=== PATIENT | male | born 1990 | race Caucasian/White ===

== ENCOUNTER 2019-10-02 14:06 | Emergency (ER) | payer MEDICAID ==
[~2019-10-02] VITALS: Ht 167.6 cm; Wt 92.1 kg
[2019-10-02 14:09] VITALS: BP 117/77
[2019-10-02] MEDS: DEXAMETHASONE 10 MG/ML VIAL IM ONE (15:58)
[2019-10-02 16:13] VITALS: BP 111/72
== END 2019-10-02 16:13 | disposition home or self-care (01) ==
LOC: MED 14:06
DX: A08.4 Viral intestinal infection, unspecified (principal); J40 Bronchitis, not specified as acute or chronic
CPT/HCPCS: 71045; 96372; 99283; J1100; Q0092

== ENCOUNTER 2020-01-16 05:13 | Emergency (ER) | payer SELFPAY ==
[~2020-01-16] VITALS: Ht 172.7 cm; Wt 100.2 kg
[2020-01-16 05:22] VITALS: BP 124/67
--- NOTE | 2020-01-16 05:26 | NUR ---
PT TAKEN TO BED 11
--- NOTE | 2020-01-16 05:27 | NUR ---
PT 29 Y/O MALE BIB SELF FOR C/O DEAN S/P HITTING HEAD X 2 WEEKS AGO. PT AAO X4. PT STATES PAIN IS 5/10 THROBBING AND RADIATES FROM FRONT OF HEAD TO NECK. PERRLA 4MM BRISK, BILAT. PT ALSO HAS C/O INTERMITTENT NAUSEA AND DIZZYNESS. PT ROM INTACT. PT GAIT STEADY. PT HAS EQUAL STRENGTH OF UE AND LE BILAT. PT DENIES ANY ABNORMAL DRAINAGE FROM NOSE OR EARS. PT VSS. PT NEGATIVE COVID SCREEN. MEDHX: NONE ALLERGIES: NKA Addendum: 01/16/20 at 0534 by [email or web address] * PT DENIES LOC WHEN HITTING HEAD.
--- NOTE | 2020-01-16 05:31 | NUR ---
DR. SCHWARZ AT BEDSIDE.
[2020-01-16] MEDS ORDERED: IBUPROFEN 600 MG TAB PO ONE (05:35)
--- NOTE | 2020-01-16 05:37 | NUR ---
MOTRIN 600MG GIVEN PO FOR 5/10 DEAN. PT ABLE TO SWALLOW MEDICATION WITHOUT DIFFICULTY.
--- NOTE | 2020-01-16 05:44 | NUR ---
PT TAKEN TO CT VIA W/C.
--- NOTE | 2020-01-16 05:57 | NUR ---
PT RETURNED FROM C/T VIA. W/C PT ABLE TO AMBULATE TO BED WITH STEADY GAIT.
--- NOTE | 2020-01-16 06:20 | NUR ---
PT STATED HEAD PAIN REDUCED FROM 5/10 TO 3/10. "I FEEL BETTER."
[2020-01-16 06:35] VITALS: BP 124/67
--- NOTE | 2020-01-16 06:35 | NUR ---
Patient discharged with v/s stable. Written and verbal after care instructions given and explained. Patient verbalized understanding. Ambulatory with steady gait. All questions addressed prior to discharge. Advised to follow up with PMD.
== END 2020-01-16 06:35 | disposition home or self-care (01) ==
LOC: MED 05:13
DX: R51 Headache (principal)
CPT/HCPCS: 70450; 99284

== ENCOUNTER 2020-07-14 02:55 | Emergency (ER) | payer SELFPAY ==
[~2020-07-14] VITALS: Ht 170.2 cm; Wt 95.3 kg
[2020-07-14 02:55] VITALS: BP 159/97
[2020-07-14] MEDS ORDERED: LORazepam 1 MG TAB PO ONE (03:10)
[2020-07-14 03:26] LABS: BASOPHILS # (AUTO) 0.1 K/uL (0.00-0.22); BASOPHILS % (AUTO) 0.6 % (0.0-2.0); EOSINOPHILS # (AUTO) 0.2 K/uL (0-0.4); EOSINOPHILS % (AUTO) 1.9 % (0.0-4.0); HEMATOCRIT 43.2 % (36-52); HEMOGLOBIN 15.1 g/dL (12.0-18.0); LYMPHOCYTES # (AUTO) 2.8 K/uL (2.0-11.5); LYMPHOCYTES % (AUTO) 30.4 % (20.5-51.1); MEAN CORPUSCULAR HEMOGLOBIN 31 pg (27-31); MEAN CORPUSCULAR HGB CONC 35 g/dL (33-37); MEAN CORPUSCULAR VOLUME 88.2 fL (80-94); MONOCYTES # (AUTO) 0.6 K/uL (0.8-1.0); MONOCYTES % (AUTO) 5.9 % (1.7-9.3); NEUTROPHILS # (AUTO) 5.7 K/uL (1.8-7.7); NEUTROPHILS % (AUTO) 61.2 % (42.2-75.2); PLATELET COUNT (AUTO) 307 K/uL (140-450); RED CELL DISTRIBUTION WIDTH 13.4 % (11.6-13.7); WHITE BLOOD COUNT (AUTO) 9.4 K/uL (4.8-10.8)
[2020-07-14 03:36] LABS: ANION GAP 15.4 (8-16); CARBON DIOXIDE 25.4 mmol/L (21-32); CREATININE 1.2 mg/dL (0.6-1.3); POTASSIUM 3.8 mmol/L (3.5-5.1)
[2020-07-14 03:51] LABS: MAGNESIUM 2.1 mg/dL (1.8-2.4); THYROID STIMULATING HORMONE 1.5 uIU/mL (0.34-3.74)
[2020-07-14 04:13] VITALS: BP 159/97
== END 2020-07-14 04:13 | disposition home or self-care (01) ==
LOC: MED 02:55
DX: F41.9 Anxiety disorder, unspecified (principal); R00.2 Palpitations; F17.200 Nicotine dependence, unspecified, uncomplicated; F12.90 Cannabis use, unspecified, uncomplicated; F14.90 Cocaine use, unspecified, uncomplicated; Z71.6 Tobacco abuse counseling
CPT/HCPCS: 36415; 71045; 80048; 83735; 84443; 84484; 85025; 93005; 99285; Q0092

== ENCOUNTER 2021-11-24 17:39 | Inpatient (IN) | payer MEDICAID, SELFPAY ==
[~2021-11-24] VITALS: Ht 170.2 cm; Wt 95.7 kg
[2021-11-24 17:48] VITALS: BP 149/103
--- NOTE | 2021-11-24 17:48 | NUR ---
31 Y/O MALE C/O SORE THROAT X2 WEEKS WITH NAUSEA. 5/10 PAIN. TONSILS +3. MEDHX: DENIES NKA
--- NOTE | 2021-11-24 19:06 | NUR ---
RAPID STREP SWAB COLLECTED AND SENT TO LAB
[2021-11-24 19:13] LABS: APPEARANCE,URINE CLEAR (CLEAR); BILIRUBIN,URINE NEGATIVE (NEGATIVE); BLOOD, URINE TRACE-I (NEGATIVE); LEUKOCYTE ESTERASE ,URINE NEGATIVE (NEGATIVE); NITRITE, URINE NEGATIVE (NEGATIVE); PH,URINE 5.5 (5.0-9.0); UGLUCOSE 3+ (NEGATIVE)
[2021-11-24] MEDS ORDERED: NACL 0.9% 1,000 ML IV ONE (19:15)
[2021-11-24] MEDS ORDERED: SODIUM CHLORIDE FLUSH 10 ML SYR IVF STA (19:15)
[2021-11-24] MEDS ORDERED: ONDANSETRON 4 MG/2 ML VIAL IVP ONE (19:15)
[2021-11-24 19:16] LABS: COLOR,URINE STRAW (YELLOW)
[2021-11-24 19:20] LABS: RBC,URINE 0-5 /HPF (0-5)
[2021-11-24 19:21] LABS: WBC,URINE NONE SEEN /HPF (0-5)
[2021-11-24 19:43] LABS: BASOPHILS # (AUTO) 0.1 K/uL (0.00-0.22); BASOPHILS % (AUTO) 0.4 % (0.0-2.0); EOSINOPHILS # (AUTO) 0.1 K/uL (0-0.4); EOSINOPHILS % (AUTO) 0.4 % (0.0-4.0); HEMATOCRIT 43.5 % (36-52); LYMPHOCYTES # (AUTO) 1.7 K/uL (2.0-11.5); LYMPHOCYTES % (AUTO) 11.4 % (20.5-51.1); MEAN CORPUSCULAR HEMOGLOBIN 31 pg (27-31); MEAN CORPUSCULAR HGB CONC 34 g/dL (33-37); MONOCYTES # (AUTO) 1.2 K/uL (0.8-1.0); MONOCYTES % (AUTO) 8.3 % (1.7-9.3); NEUTROPHILS # (AUTO) 11.7 K/uL (1.8-7.7); NEUTROPHILS % (AUTO) 79.5 % (42.2-75.2); PLATELET COUNT (AUTO) 244 K/uL (140-450); RED BLOOD CELL COUNT(AUTO) 4.89 MIL/uL (4.20-6.10); RED CELL DISTRIBUTION WIDTH 14.3 % (11.6-13.7); WHITE BLOOD COUNT (AUTO) 14.7 K/uL (4.8-10.8)
--- NOTE | 2021-11-24 19:47 | NUR ---
PT AMBULATED TO BED 05.
--- NOTE | 2021-11-24 19:56 | NUR ---
PT LAYING IN BED LOCKED IN LOWEST POSITION W X2 SIDERAILS UP FOR PT SAFETY. PT REPORTS HE HAD BEEN HAVING SEVERE EXHAUSTION EPISODES, CONSTANT URINATION, DRY MOUTH, SORE THROAT W WHITE RESIDUE, LACK OF APPETITE, NAUSEA, AND CONSTIPATION,+ APPROX 39LB WEIGHT LOSS IN 2 WEEKS. PT AOX4, GCS, 15, CONECTED TO MONITOR W VSS. BREATHING EVEN AND UNLABORED. NAD NOTED, WILL CONTINUE TO MONITOR. PMH:DENIES ALLERGIES: DENIES
[2021-11-24 20:02] LABS: ALBUMIN 3.5 g/dL (3.4-5.0); ANION GAP 25.2 (8-16); CARBON DIOXIDE 17.2 mmol/L (21-32); CREATININE 1.1 mg/dL (0.6-1.3); POTASSIUM 3.4 mmol/L (3.5-5.1); TOTAL BILIRUBIN 0.6 mg/dL (0.0-1.0)
[2021-11-24] MEDS ORDERED: NACL 0.9% 2,000 ML IV ONE (20:30)
[2021-11-24] MEDS ORDERED: INSULIN REGULAR, HUMAN 100 UNIT in NACL 0.9% 100 ML IV ONE ×2 (20:30)
[2021-11-24] MEDS ORDERED: POTASSIUM CHLORIDE 10 MEQ TABER PO ONE (20:30)
[2021-11-24] MEDS ORDERED: KETOROLAC 30 MG/ML VIAL IVP ONE (20:30)
--- NOTE | 2021-11-24 21:16 | NUR ---
PT REPORTS ONGOING SORE THROAT PAIN. ERMD MADE AWARE.
[2021-11-24] MEDS ORDERED: INSULIN REGULAR, HUMAN 100 UNIT in NACL 0.9% 100 ML IV SCH ×2 (21:50)
--- NOTE | 2021-11-24 21:52 | NUR ---
PT DENIES ANY ONGOING THROAT PAIN. VSS. WILL CONTINUE TO MONITOR.
--- NOTE | 2021-11-24 22:26 | NUR ---
Pt report given to GRIS WHITFIELD. Transfer of care at this time.
--- NOTE | 2021-11-24 22:30 | NUR ---
REPORT CALLED IN VIA TELEPHONE FROM ER [employer] SORTER GRIS SANTOS. PT A0X4, ABLE TO FOLLOW COMMANDS, AND LET NEEDS KNOWN. PT ON ROOM AIR WITH 02 SATURATION @98%, LUNG SOUNDS CLEAR THROUGHOUT. SR ON MONITOR. 20G TO LT AC, PATENT AND INTACT, INFUSING NS @250 ML/HR. 18G TO RT AC, PATENT AND INTACT, INFUSING INSULIN AT 10 UNITS/HR. PT DENIES HAVING ANY PAIN. SKIN INTACT. SAFETY MEASURES IN PLACE. BED IN LOWEST POSITION WITH CALL LIGHT WITHIN REACH. WILL CONTINUE TO MONITOR.
[2021-11-24] MEDS: NACL 0.9% 1,000 ML IV SCH (22:31)
--- NOTE | 2021-11-24 22:40 | NUR ---
Patient will be admitted to care of . Admited to ICU. Will go to room ICU 7. Belongings list completed. Report to GRIS WHITFIELD.
--- NOTE | 2021-11-24 22:45 | NUR ---
PT ARRIVED VIA GURNEY FROM ED
[2021-11-24 23:00] VITALS: BP 117/63
[2021-11-25] VITALS (15 sets, daily range): BP systolic 81–160; BP diastolic 46–97
[2021-11-25] MEDS ORDERED: LORazepam 2 MG/ML VIAL IM/IVP PRN (00:25)
[2021-11-25] MEDS ORDERED: ZOLPIDEM 5 MG TAB PO PRN (00:25)
[2021-11-25] MEDS ORDERED: MAG SULF 2000 MG/WATER PREMIX 50 ML IV PRN (00:25)
[2021-11-25] MEDS ORDERED: HYDROcodone/APAP 5/325 MG 1 TAB TAB PO PRN (00:25)
[2021-11-25] MEDS ORDERED: DOCUSATE SODIUM 100 MG GELCAP PO PRN (00:25)
[2021-11-25] MEDS: BLOOD GLUCOSE MONITORING 1 DEV DEV FS SCH ×24 (00:25→23:25)
[2021-11-25] MEDS ORDERED: DEXTROSE 50% 50 ML SYR IVP PRN (00:25)
[2021-11-25] MEDS ORDERED: ACETAMINOPHEN 325 MG TAB PO PRN (00:25)
[2021-11-25] MEDS ORDERED: ONDANSETRON 4 MG/2 ML VIAL IM/IVP PRN (00:25)
--- NOTE | 2021-11-25 00:26 | NUR ---
BLOOD GLUCOSE READING OF 171. REGULAR NS HELD AND D5 1/2NS STARTED @150 ML/HR. WILL CONTINUE TO MONITOR.
[2021-11-25 00:33] LABS: ANION GAP 19.9 (8-16); CARBON DIOXIDE 16.4 mmol/L (21-32); CREATININE 0.8 mg/dL (0.6-1.3); POTASSIUM 3.3 mmol/L (3.5-5.1)
[2021-11-25] MEDS ORDERED: MORPHINE SULFATE 4 MG/ML SYR IVP PRN (01:05)
[2021-11-25 01:06] LABS: CHOL/HDL RATIO 7.3 (1-4.5)
[2021-11-25] MEDS: INSULIN REGULAR, HUMAN 100 UNIT in NACL 0.9% 100 ML IV SCH ×4 (01:30→16:17)
[2021-11-25] MEDS: DEXT 5% / NACL 0.45% 1,000 ML IV SCH ×3 (01:30→17:42)
--- NOTE | 2021-11-25 01:49 | NUR ---
DR RUBY CONTACTED ABOUT HCO3 AND ANION GAP VALUES. RECEIVED ORDERS TO CONTINUE WITH DKA PROTOCOL.
[2021-11-25] MEDS: NACL 0.9% 1,000 ML IV SCH ×6 (01:50→21:50)
[2021-11-25 01:51] LABS: PROTHROMBIN TIME 9.4 secs (10.8-13.4)
--- NOTE | 2021-11-25 04:28 | NUR ---
BLOOD GLUCOSE READING OF 234. D5 1/2NS STOPPED AND REGULAR NS STARTED @220 ML/HR PER DKA PROTOCOL. WILL CONTINUE TO MONITOR.
[2021-11-25 04:43] LABS: ALBUMIN 2.7 g/dL (3.4-5.0); ANION GAP 15.5 (8-16); CARBON DIOXIDE 19.6 mmol/L (21-32); CREATININE 0.9 mg/dL (0.6-1.3); POTASSIUM 3.1 mmol/L (3.5-5.1); TOTAL BILIRUBIN 0.5 mg/dL (0.0-1.0)
--- NOTE | 2021-11-25 05:38 | NUR ---
PT BLOOD GLUCOSE READING OF 199. REGULAR NS STOPPED AND D5 1/2NS STARTED @150 ML/HR PER DKA PROTOCOL. WILL CONTINUE TO MONITOR.
--- NOTE | 2021-11-25 07:24 | NUR ---
REPORT GIVEN TO JJ NGUYENO FOR CONTINUITY OF CARE
--- NOTE | 2021-11-25 07:30 | NUR ---
RECEIVED REPORT FROM CORRECTIONAL THERAPY TEACHER. AOX4, ABLE TO MAKE NEEDS KNOWN. ON ROOM AIR WITH 02 SATURATION @97%, LUNG SOUNDS CLEAR THROUGHOUT. SR ON MONITOR. 20G TO LT AC, PATENT AND INTACT, INFUSING D5 1/2NS @150 ML/HR. 18G TO RT AC, PATENT AND INTACT, INFUSING INSULIN AT 0.05U/KG/HR. NO C/O PAIN. SKIN INTACT. SAFETY MEASURES IN PLACE. BED IN LOWEST POSITION WITH CALL LIGHT WITHIN REACH. WILL CONTINUE TO MONITOR.
[2021-11-25 08:51] LABS: ANION GAP 15.1 (8-16); CARBON DIOXIDE 18.9 mmol/L (21-32); CREATININE 0.8 mg/dL (0.6-1.3)
--- NOTE | 2021-11-25 09:05 | NUR ---
DUE MEDS GIVEN. TOLERATED WELL. PT WITH C/O SORE THROAT 02/26, NORCO GIVEN ORDERED
--- NOTE | 2021-11-25 09:23 | NUR ---
PATIENT HAS BEEN SCREENED AND CATEGORIZED HIGH NUTRITION RISK. PATIENT WILL BE SEEN WITHIN 1-2 DAYS OF ADMISSION. REFERRAL RECEIVED FOR NEWLY DIAGNOSED DIABETIC JOMAR BARROSO RD
[2021-11-25] MEDS: POTASSIUM CHLORIDE 10 MEQ TABER PO PRN ×2 (09:36→21:29)
[2021-11-25 10:58] LABS: BASOPHILS # (AUTO) 0.1 K/uL (0.00-0.22); BASOPHILS % (AUTO) 0.6 % (0.0-2.0); EOSINOPHILS # (AUTO) 0.1 K/uL (0-0.4); EOSINOPHILS % (AUTO) 0.9 % (0.0-4.0); HEMATOCRIT 39.1 % (36-52); HEMOGLOBIN 13.4 g/dL (12.0-18.0); LYMPHOCYTES # (AUTO) 2.2 K/uL (2.0-11.5); LYMPHOCYTES % (AUTO) 20.4 % (20.5-51.1); MEAN CORPUSCULAR HEMOGLOBIN 31 pg (27-31); MEAN CORPUSCULAR HGB CONC 34 g/dL (33-37); MEAN CORPUSCULAR VOLUME 90.1 fL (80-94); MONOCYTES # (AUTO) 0.8 K/uL (0.8-1.0); MONOCYTES % (AUTO) 7.3 % (1.7-9.3); NEUTROPHILS # (AUTO) 7.6 K/uL (1.8-7.7); NEUTROPHILS % (AUTO) 70.8 % (42.2-75.2); PLATELET COUNT (AUTO) 190 K/uL (140-450); RED BLOOD CELL COUNT(AUTO) 4.34 MIL/uL (4.20-6.10); RED CELL DISTRIBUTION WIDTH 14.4 % (11.6-13.7); WHITE BLOOD COUNT (AUTO) 10.7 K/uL (4.8-10.8)
--- NOTE | 2021-11-25 11:00 | NUR ---
PT RESTING IN BED. WITH C/O MILD THROAT PAIN, STATED THAT THE NORCO HELPED. NO RESPIRATORY DISTRESS
--- NOTE | 2021-11-25 11:18 | NUR ---
DC PLANN[age] YRS OLD MALE PATIENT WAS ADMITTED FROM HOME WITH A DX OF DKA. PATIENT HAS A HX OF DM. BLOOD GLUCOSE ON ADMISSION 399, ANION GAP 25.2 -19.9-15.5-15.1 CXR SHOWED NO EVIDENCE OF ACUTE CARDIOPULMONARY DISEASE. RAPID COVID TEST NEGATIVE. ADMINISTERED IVF, AND CONTINUED HOME MEDS. CONSULTED WITH PULMO. DC PLAN TO GO HOME WHEN STABLE CM TO FOLLOW
[2021-11-25 12:44] LABS: ANION GAP 14.4 (8-16); CARBON DIOXIDE 20.7 mmol/L (21-32); CREATININE 0.8 mg/dL (0.6-1.3); POTASSIUM 3.1 mmol/L (3.5-5.1)
[2021-11-25] MEDS ORDERED: POTASSIUM CHLORIDE 10 MEQ TABER PO SCH ×2 (13:17→23:00)
[2021-11-25] MEDS ORDERED: PANTOPRAZOLE 40 MG TABEC PO SCH (13:32)
--- NOTE | 2021-11-25 13:45 | NUR ---
NOTIFIED DR DEL VALLE ABOUT PT'S COMPLAINT OF WORSENING THROAT PAIN AND WHITE SPOTS IN PT'S MOUTH. ORDERED NYSTATIN SWISH AND SWALLOW
[2021-11-25 14:38] LABS: BARBITURATE, URINE NEGATIVE ng/ml (NEG <=200); BENZODIAZEPINE, URINE NEGATIVE ng/mL (NEG <=200); CANNABINOID, URINE NEGATIVE ng/mL (NEG <=50); COCAINE, URINE NEGATIVE ng/mL (NEG <=300); OPIATE, URINE POSITIVE ng/mL (NEG <=2000); PHENCYCLIDINE SCREEN,URINE NEGATIVE ng/mL (NEG <=25)
[2021-11-25 16:27] LABS: CARBON DIOXIDE 23.1 mmol/L (21-32); CREATININE 0.8 mg/dL (0.6-1.3); POTASSIUM 3.1 mmol/L (3.5-5.1)
--- NOTE | 2021-11-25 16:30 | NUR ---
NOTIFIED DR DEL VALLE ABOUT LAB RESULTS, K-3.1 AND ANION GAP 14.0, NO NEW ORDERS
[2021-11-25] MEDS: NYSTATIN 500 MU/5 ML UDC PO SCH ×2 (16:42→21:16)
--- NOTE | 2021-11-25 18:00 | NUR ---
PT EATING DINNER, NO COMPLAINTS AT THIS TIME, NO APPARENT DISTRESS
--- NOTE | 2021-11-25 19:29 | NUR ---
RECEIVED REPORT FROM GRIS BRIGGS FOR CONTINUATION OF CARE
--- NOTE | 2021-11-25 19:37 | NUR ---
PATIENT RESTING WITH EYES CLOSED, AND SEMI FOWLERS. PATIENT ON INSULIN DRIP CURRENTLY AT 0.1. SAFETY MEASURES ARE IN PLACE, ATTACHED TO MONITORS AND WILL CONTINUE TO MONITOR PATIENT.
[2021-11-25] MEDS ORDERED: ATORVASTATIN 20 MG TAB PO SCH (21:00)
[2021-11-25 21:05] LABS: ANION GAP 13.4 (8-16); CARBON DIOXIDE 23.6 mmol/L (21-32); CREATININE 0.8 mg/dL (0.6-1.3)
[2021-11-26] VITALS: BP 119/70
[2021-11-26] MEDS: BLOOD GLUCOSE MONITORING 1 DEV DEV FS SCH ×13 (00:25→12:23)
[2021-11-26 01:14] LABS: CREATININE 0.8 mg/dL (0.6-1.3)
[2021-11-26 02:00] VITALS: BP 125/73
[2021-11-26] MEDS: NACL 0.9% 1,000 ML IV SCH ×3 (02:20→09:50)
[2021-11-26 04:00] VITALS: BP 119/57
--- NOTE | 2021-11-26 04:04 | NUR ---
patient repositioned and found patient to be soiled and had diarrhea that is black and tarry. provided pericare and added rk pads- patient tolerated well.
[2021-11-26 04:29] LABS: BASOPHILS # (AUTO) 0.1 K/uL (0.00-0.22); BASOPHILS % (AUTO) 0.5 % (0.0-2.0); EOSINOPHILS # (AUTO) 0.1 K/uL (0-0.4); EOSINOPHILS % (AUTO) 0.5 % (0.0-4.0); HEMATOCRIT 43.6 % (36-52); HEMOGLOBIN 14.9 g/dL (12.0-18.0); LYMPHOCYTES # (AUTO) 1.1 K/uL (2.0-11.5); LYMPHOCYTES % (AUTO) 10.2 % (20.5-51.1); MEAN CORPUSCULAR HEMOGLOBIN 31 pg (27-31); MEAN CORPUSCULAR HGB CONC 34 g/dL (33-37); MEAN CORPUSCULAR VOLUME 89.2 fL (80-94); MONOCYTES # (AUTO) 0.8 K/uL (0.8-1.0); MONOCYTES % (AUTO) 7.4 % (1.7-9.3); NEUTROPHILS # (AUTO) 8.5 K/uL (1.8-7.7); NEUTROPHILS % (AUTO) 81.4 % (42.2-75.2); PLATELET COUNT (AUTO) 176 K/uL (140-450); RED BLOOD CELL COUNT(AUTO) 4.89 MIL/uL (4.20-6.10); RED CELL DISTRIBUTION WIDTH 13.8 % (11.6-13.7); WHITE BLOOD COUNT (AUTO) 10.5 K/uL (4.8-10.8)
[2021-11-26 04:45] LABS: CARBON DIOXIDE 21.4 mmol/L (21-32); CREATININE 0.8 mg/dL (0.6-1.3); POTASSIUM 3.4 mmol/L (3.5-5.1)
[2021-11-26 04:48] LABS: MAGNESIUM 1.4 mg/dL (1.8-2.4); PHOSPHORUS 1.8 mg/dL (2.5-4.9)
[2021-11-26] MEDS: DEXT 5% / NACL 0.45% 1,000 ML IV SCH (04:48)
[2021-11-26 06:00] VITALS: BP 109/62
--- NOTE | 2021-11-26 07:15 | NUR ---
report given to Laverne LANDRY for continuation of care
--- NOTE | 2021-11-26 07:15 | NUR ---
RECEIVED BEDSIDE REPORT FROM ISAIAH AND FIDEL RN FOR CONTINUITY OF CARE. PT AAOX4, EYES OPEN, PERRLA. ON ROOM AIR. ST ON THE MONITOR. BOWEL SOUNDS ACTIVE. CONTINENT OF BOWEL AND BLADDER. URINAL AT BEDSIDE. ACTIVE ROM BUE BLE. L AC 20G IV INFUSING NS AT 150 ML/HR. R AC 18G INFUSING INSULIN REGULAR AT 0.1 UNIT/KG/HR. CALL LIGHT WITHIN REACH. ON STANDARD PRECAUTIONS. SAFETY PRECAUTIONS MET. INITIAL ASSESSMENT COMPLETE, WILL CONTINUE TO CLOSELY MONITOR.
[2021-11-26 08:00] VITALS: BP 137/74
--- NOTE | 2021-11-26 08:00 | NUR ---
PT EATING CLEAR LIQUID BREAKFAST. TOLERATING WELL. WILL CONTINUE TO CLOSELY MONITOR.
[2021-11-26] MEDS: NYSTATIN 500 MU/5 ML UDC PO SCH ×2 (08:05→12:23)
[2021-11-26] MEDS ORDERED: PANTOPRAZOLE 40 MG TABEC PO SCH (09:00)
[2021-11-26 09:07] LABS: T4 (THYROXINE) 7.3 ug/dL (4.5-12.0)
[2021-11-26 09:15] LABS: ANION GAP 13.4 (8-16); POTASSIUM 3.4 mmol/L (3.5-5.1)
--- NOTE | 2021-11-26 10:10 | NUR ---
RECEIVED TEXT FROM DR DEL VALLE REGARDING ANION GAP 13.4. RECEIVED ORDERS TO START LANTUS 10U DAILY, HUMALOG SLIDING SCALE, AND WEAN OFF INSULIN DRIP.
--- NOTE | 2021-11-26 10:15 | NUR ---
PROVIDED PT WITH BEDSIDE COMMODE. XL BM NOTED, CHARLA MARIE. WILL CONTINUE TO MONITOR.
[2021-11-26] MEDS ORDERED: INSULIN LANTUS 100 UNITS/ML 10 ML VIAL SUBQ SCH (10:20)
--- NOTE | 2021-11-26 10:45 | NUR ---
SEEN AND EXAMINED BY DR DEL VALLE.
[2021-11-26] MEDS: INSULIN LISPRO SLIDING SCALE 100 UNITS/ML VIAL SUBQ PRN ×2 (11:12→12:24)
--- NOTE | 2021-11-26 11:15 | NUR ---
DIETITIAN AT BEDSIDE
[2021-11-26] MEDS ORDERED: BLOO1EAC40 MC (11:46)
[2021-11-26] MEDS ORDERED: LANC1COM6 MC (11:46)
[2021-11-26] MEDS ORDERED: SLIDE SUBQ (11:46)
[2021-11-26] MEDS ORDERED: ATOR20TA40 PO (11:46)
[2021-11-26] MEDS ORDERED: [UNRECOGNIZED DRUG - CODE] PO (11:46)
[2021-11-26] MEDS ORDERED: INSU-656 SUBQ (11:46)
--- NOTE | 2021-11-26 11:47 | NUR ---
11/26/21 RD INITIAL ASSESSMENT COMPLETED PLEASE REFER TO NUTRITION ASSESSMENT UNDER CARE ACTIVITY FOR ESTIMATED NUTRITIONAL NEEDS. 1. WHEN/IF MEDICALLY APPROPRIATE, RECOMMEND [facility] 60GM DIET 2. MONITOR BLOOD GLUCOSE LEVELS 3. PROVIDED NUTRITION EDUCATION FOR DIABETES AND CARB COUNTING 4. RD TO FOLLOW-UP 3-5 DAYS, MODERATE RISK JOMAR BARROSO RD
[2021-11-26 12:00] VITALS: BP 135/73
[2021-11-26] MEDS ORDERED: SODIUM PHOS / POTASSIUM PHOS 1 PKT PDR PO SCH (12:00)
[2021-11-26] MEDS ORDERED: MAGNESIUM OXIDE 400 MG TAB PO SCH (12:00)
[2021-11-26] MEDS ORDERED: BLOOD GLUCOSE MONITORING 1 DEV DEV FS SCH (12:25)
--- NOTE | 2021-11-26 13:00 | NUR ---
CALLED TELEPHONE REPORT TO CONRADO [facility] RN FOR CONTINUITY OF CARE.
[2021-11-26 13:05] LABS: ANION GAP 11.6 (8-16); CARBON DIOXIDE 25.6 mmol/L (21-32); CREATININE 0.7 mg/dL (0.6-1.3); POTASSIUM 3.2 mmol/L (3.5-5.1)
--- NOTE | 2021-11-26 13:05 | NUR ---
RECEIVED REPORT FROM [facility] ICU NURSE.
--- NOTE | 2021-11-26 13:20 | NUR ---
PT TRANSFERRED TO [facility] BED 106A IN A WHEELCHAIR. NURSE CONRADO BRADFORD.
[2021-11-26] MEDS ORDERED: POTASSIUM CHLORIDE 10 MEQ TABER PO SCH (13:36)
--- NOTE | 2021-11-26 14:41 | NUR ---
PT DISCHARGED HOME WITH FAMILY IN PERSONAL VEHICLE. IVS REMOVED, CANULAS INTACT. TOLERATED WELL. ALL PERSONAL BELONGINGS IN POSSESSION. ALL SAFETY MEASURES IN PLACE
[2021-11-27] MEDS ORDERED: INSULIN LANTUS 100 UNITS/ML 10 ML VIAL SUBQ SCH (09:00)
== END 2021-11-26 14:25 | disposition home or self-care (01) | DRG 420 ==
LOC: MED 17:39 → MTU 21:57 → MIC 22:19 → MTU 11-26 13:20
DX: E11.10 Type 2 diabetes mellitus with ketoacidosis without coma (principal); E87.1 Hypo-osmolality and hyponatremia; E87.6 Hypokalemia; R63.1 Polydipsia; R35.89 Other polyuria; E78.5 Hyperlipidemia, unspecified; F12.90 Cannabis use, unspecified, uncomplicated; Z20.822 Contact with and (suspected) exposure to COVID-19; R74.01 Elevation of levels of liver transaminase levels; Z87.891 Personal history of nicotine dependence
CPT/HCPCS: 36415; 71045; 80048; 80053; 80305; 81001; 82150; 82803; 82948; 83036; 83690; 83735; 83880; 84100; 84134; 84436; 84443; 85025; 85610; 85730; 87081; 93005; 96361; 96374; 96375; 99291; J1644; J1815; J1885; J2405